=== PATIENT | male | born 1975 | race Caucasian/White ===

== ENCOUNTER 2018-02-07 22:15 | Emergency (ER) | payer OTHER ==
[~2018-02-07] VITALS: Ht 172.7 cm; Wt 82.6 kg
[2018-02-07] MEDS ORDERED: Morphine Sulfate 4mg/ml Inj IVP ONE (22:30)
[2018-02-07] MEDS ORDERED: Ketorolac 30mg Inj IV ONE (22:30)
--- NOTE | 2018-02-07 22:31 | Emergency Room Report ---
History of Present Illness General Chief Complaint: Abdominal Pain Source: Patient Present Illness HPI Is a 42-year-old male who has a history of kidney stone about 7 years ago. He was able to pass it on his own. He presents with chief complaint abdominal pain started about few hours ago. Now radiating down to the left flank area. Has nausea but no vomiting. Pain is 8 out of 10. His been drinking a lot of fluid. No fever chills. No hematuria. Nothing made it better. Nothing made it worse. Pain is sharp in nature. Allergies: Coded Allergies: No Known Allergies (Unverified , 02/07/18) Patient History Past Medical History: see triage record, old chart reviewed Past Surgical History: other Pertinent Family History: none Social History: Denies: smoking Immunizations: other Reviewed Nursing Documentation: PMH: Agreed; PSxH: Agreed Nursing Documentation-PMH Past Medical History: No Stated History Review of Systems Eye: Denies: eye pain, blurred vision ENT: Denies: ear pain, nose congestion, throat swelling Respiratory: Denies: cough, shortness of breath Cardiovascular: Denies: chest pain, palpitations Gastrointestinal: Reports: abdominal pain; Denies: diarrhea, nausea, vomiting Musculoskeletal: Denies: back pain, joint pain Skin: Denies: rash Neurological: Denies: headache, numbness Endocrine: Denies: increased thirst, increased urine Hematologic/Lymphatic: Denies: easy bruising All Other Systems: negative except mentioned in HPI Physical Exam Vital Signs Date Time Temp Pulse Resp B/P (MAP) Pulse Ox O2 Delivery O2 Flow Rate FiO2 02/07/18 22:19 98.2 53 18 142/80 97 Room Air 98.2 vitals normal Sp02 EP Interpretation: reviewed, normal General Appearance: well appearing, no apparent distress, alert Head: normocephalic, atraumatic Eyes: bilateral eye PERRL, bilateral eye EOMI ENT: hearing grossly normal, normal pharynx Neck: full range of motion, supple, no meningismus Respiratory: chest non-tender, lungs clear, normal breath sounds Cardiovascular #1: regular rate, rhythm, no murmur Gastrointestinal: normal bowel sounds, non tender, no mass, no organomegaly, no bruit, non-distended Musculoskeletal: back normal, gait/station normal, normal range of motion Psychiatric: mood/affect normal Skin: warm/dry Medical Decision Making Diagnostic Impression: Primary Impression: Ureteral calculus, left ER Course Patient presents with renal colic and has a ureteral stone. No evidence of infection or kidney injury. Pain is well-controlled. We'll discharge home. Lab Results Impression labs unremarkable CT/MRI/US Diagnostic Results CT/MRI/US Diagnostic Results : Imaging Test Ordered: cT abdomen and pelvis Impression Read by radiologist. Left UVJ stone with mild hydronephrosis Last Vital Signs Date Time Temp Pulse Resp B/P (MAP) Pulse Ox O2 Delivery O2 Flow Rate FiO2 02/07/18 22:19 98.2 53 18 142/80 97 Room Air 98.2 Status: improved Disposition: HOME, SELF-CARE Condition: Stable Scripts Tamsulosin Hcl (TAMSULOSIN HCL*) 0.4 Mg Cap.er.24h 0.4 MG ORAL BEDTIME, #30 CAP Prov: EWA FISHMAN M.D. 02/07/18 Ibuprofen* (MOTRIN*) 600 Mg Tablet 600 MG ORAL THREE TIMES A DAY, #30 TAB 0 Refills Prov: EWA FISHMAN M.D. 02/07/18 Hydrocodone/Acetaminophen 5-325* (HYDROCODONE/ACETAMINOPHEN 5-325*) 1 Each Tablet 1 TAB ORAL Q6H PRN for For Pain, #20 TAB 0 Refills Prov: EWA FISHMAN M.D. 02/07/18 Additional Instructions: Follow-up with your DrJamil in 2 to 3 days if not better. If you can't pass the kidney stone, you will need a referral to see a urologist. Return if symptom worsen. EWA FISHMAN M.D. February 07, 2018 22:31
[2018-02-07 22:40] VITALS: BP 130/90
[2018-02-07 22:58] LABS: ANION GAP 9 mmol/L (5-15); BASOPHILS % (AUTO) 1.6 % (0.0-2.0); BLOOD UREA NITROGEN 16 mg/dL (7-18); CALCIUM 8.8 MG/DL (8.5-10.1); CARBON DIOXIDE 25 MMOL/L (21-32); CHLORIDE 101 MMOL/L (98-107); CREATININE 1.2 MG/DL (0.55-1.30); HEMATOCRIT 41.6 % (42.0-52.0); HEMOGLOBIN 14.2 G/DL (14.2-18.0); LYMPHOCYTES % (AUTO) 31.6 % (20.0-45.0); MEAN CORPUSCULAR VOLUME 90 FL (80-99); MONOCYTES % (AUTO) 9.8 % (1.0-10.0); NEUTROPHILS % (AUTO) 55.1 % (45.0-75.0); PLATELET COUNT 206 K/UL (150-450); POTASSIUM 3.7 MMOL/L (3.5-5.1); RED BLOOD COUNT 4.62 M/UL (4.70-6.10); RED CELL DISTRIBUTION WIDTH 11.2 % (11.6-14.8); SODIUM 135 MMOL/L (136-145)
[2018-02-07 23:12] LABS: APPEARANCE,URINE SLIGHTLY CLOUDY; BILIRUBIN, URINE NEGATIVE (NEGATIVE); COLOR,URINE PALE YELLOW; GLUCOSE, URINE (UA) NEGATIVE (NEGATIVE); KETONES,URINE NEGATIVE (NEGATIVE); LEUKOCYTE ESTERASE ,URINE NEGATIVE (NEGATIVE); NITRITE,URINE NEGATIVE (NEGATIVE); PH,URINE 6.5 (4.5-8.0); PROTEIN,URINE NEGATIVE (NEGATIVE); UROBILINOGEN,URINE NORMAL MG/DL (0.0-1.0)
[2018-02-07] MEDS ORDERED: IBUPROFEN600 MG ORAL (23:26)
[2018-02-07] MEDS ORDERED: TAMSULOSIN HCL0.4 MG ORAL (23:26)
[2018-02-07] MEDS ORDERED: HYDROCODON-ACE1 EA15 ORAL (23:26)
[2018-02-07 23:30] VITALS: BP 128/82
--- NOTE | 2018-02-07 23:47 | Diagnostic Imaging Report ---
EXAM: CT Abdomen and Pelvis Without Intravenous Contrast CLINICAL HISTORY: ABD PAIN TECHNIQUE: Axial computed tomography images of the abdomen and pelvis without intravenous contrast. CTDI is 16 mGy and DLP is 914 mGy-cm. One or more of the following dose reduction techniques were used: automated exposure control, adjustment of the mA and/or kV according to patient size, use of iterative reconstruction technique. COMPARISON: No relevant prior studies available. FINDINGS: Lung bases: Unremarkable. No mass. No consolidation. ABDOMEN: Liver: Multiple low-density lesions in the liver measuring up to 10 cm. Gallbladder and bile ducts: Unremarkable. No calcified stones. No ductal dilation. Pancreas: Unremarkable. No ductal dilation. Spleen: Unremarkable. No splenomegaly. Adrenals: Unremarkable. No mass. Kidneys and ureters: Bilateral nonobstructing renal stones. 3 mm distal left ureteral stone with moderate proximal dilatation. Stomach and bowel: Unremarkable. No obstruction. No mucosal thickening. PELVIS: Appendix: No findings to suggest acute appendicitis. Bladder: Unremarkable. No stones. Reproductive: Unremarkable as visualized. ABDOMEN and PELVIS: Intraperitoneal space: Unremarkable. No free air. No significant fluid collection. Bones/joints: No acute fracture. No dislocation. Soft tissues: Unremarkable. Vasculature: Unremarkable. No abdominal aortic aneurysm. Lymph nodes: Unremarkable. No enlarged lymph nodes. IMPRESSION: 1. Multiple low-density lesions in the liver measuring up to 10 cm. These are indeterminate. Correlate with contrast enhanced imaging. 2. Bilateral nonobstructing renal stones. 3 mm distal left ureteral stone with moderate proximal dilatation. [employer] 02/07/18 23:53 Verify Receipt Verified receipt with Maurilio in ER for MD Winsome on 02/07 23:52 (-07:00)
[2018-02-08 00:20] VITALS: BP 128/82
[2018-02-08] MEDS ORDERED: HYDROCODON-ACE1 EA15 ORAL (11:00)
== END 2018-02-08 00:20 | disposition home or self-care (01) ==
LOC: EMR 23:24
DX: N20.1 Calculus of ureter (principal); Z87.442 Personal history of urinary calculi
CPT/HCPCS: 36415; 74176; 80048; 81003; 85025; 96360; 96374; 96375; 99284; J1885; J2270; J2405

== ENCOUNTER 2018-02-09 19:41 | Inpatient (IN) | payer OTHER ==
[~2018-02-09] VITALS: Ht 172.7 cm; Wt 82.6 kg
[~2018-02-09 19:41] MED LIST: HYDROCODON-ACE1 EA15 ORAL; IBUPROFEN600 MG ORAL; TAMSULOSIN HCL0.4 MG ORAL
[2018-02-09 20:10] VITALS: BP 147/90
[2018-02-09] MEDS ORDERED: Ketorolac 30mg Inj IV ONE (20:30)
[2018-02-09] MEDS ORDERED: Morphine Sulfate 4mg/ml Inj IVP ONE (20:30)
[2018-02-09] MEDS ORDERED: Lidocaine 2% 100mg/5ml Carp IV ONE (20:30)
[2018-02-09 20:51] LABS: ANION GAP 8 mmol/L (5-15); BLOOD UREA NITROGEN 12 mg/dL (7-18); CALCIUM 8.8 MG/DL (8.5-10.1); CARBON DIOXIDE 28 MMOL/L (21-32); CHLORIDE 100 MMOL/L (98-107); CREATININE 1.6 MG/DL (0.55-1.30); SODIUM 136 MMOL/L (136-145)
[2018-02-09 20:53] LABS: APPEARANCE,URINE CLEAR; BILIRUBIN, URINE NEGATIVE (NEGATIVE); COLOR,URINE PALE YELLOW; GLUCOSE, URINE (UA) NEGATIVE (NEGATIVE); HEMATOCRIT 41.3 % (42.0-52.0); HEMOGLOBIN 14.2 G/DL (14.2-18.0); KETONES,URINE 3+ (NEGATIVE); LEUKOCYTE ESTERASE ,URINE NEGATIVE (NEGATIVE); MEAN CORPUSCULAR VOLUME 89 FL (80-99); NITRITE,URINE NEGATIVE (NEGATIVE); PH,URINE 7 (4.5-8.0); PLATELET COUNT 179 K/UL (150-450); PROTEIN,URINE NEGATIVE (NEGATIVE); RED BLOOD COUNT 4.62 M/UL (4.70-6.10); RED CELL DISTRIBUTION WIDTH 10.7 % (11.6-14.8); UROBILINOGEN,URINE NORMAL MG/DL (0.0-1.0); WHITE BLOOD COUNT 13.3 K/UL (4.8-10.8)
[2018-02-09 21:01] LABS: ALANINE AMINOTRANSFERASE 37 U/L (12-78); ALBUMIN 3.9 G/DL (3.4-5.0); ALBUMIN/GLOBULIN RATIO 1.1 (1.0-2.7); ALKALINE PHOSPHATASE 61 U/L (46-116); ASPARTATE AMINO TRANSFERASE 24 U/L (15-37); BILIRUBIN,TOTAL 1.1 MG/DL (0.2-1.0)
[2018-02-09 21:03] LABS: BILIRUBIN,DIRECT 0.2 MG/DL (0.0-0.3)
[2018-02-09 21:30] VITALS: BP 126/73
--- NOTE | 2018-02-09 21:44 | Emergency Room Report ---
History of Present Illness General Chief Complaint: Lower Back Pain or Injury Source: Patient Present Illness HPI Patient is a 42-year-old male recently seen emergency department for the kidney stone a presented after increased left sided flank pain. Patient reportedly had been unable to keep down his medications the patient had recently been seen was noted to have a 3 mm left UVJ stone. The patient reports having increased left-sided flank pain as well as left-sided lower abdominal pain. He denies any hematuria. He denies any recent fever. The patient had emesis without any blood. The patient have reported having worsening pain since last visit 2 days ago.The pain was severe and sharp in nature. Allergies: Coded Allergies: No Known Allergies (Unverified , 02/07/18) Patient History Past Medical History: see triage record Reviewed Nursing Documentation: PMH: Agreed; PSxH: Agreed Review of Systems All Other Systems: negative except mentioned in HPI Physical Exam Vital Signs Date Time Temp Pulse Resp B/P (MAP) Pulse Ox O2 Delivery O2 Flow Rate FiO2 02/09/18 19:44 98.9 68 18 147/90 98 Room Air 99.0 Sp02 EP Interpretation: reviewed, normal General Appearance: normal inspection, well appearing, no apparent distress, alert, GCS 15 Head: atraumatic ENT: normal ENT inspection, hearing grossly normal, normal voice Neck: normal inspection, full range of motion, supple, no bony tend Respiratory: normal inspection, lungs clear, normal breath sounds, no respiratory distress, no retraction, no wheezing Cardiovascular #1: regular rate, rhythm, no edema Gastrointestinal: normal inspection, normal bowel sounds, non tender, soft, no guarding, no hernia Genitourinary: CVA tenderness (L) Musculoskeletal: normal inspection, back normal, normal range of motion Neurologic: normal inspection, alert, oriented x3, responsive, 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 Differential diagnosis included was not limited to pneumonia, renal stone, rib fracture, pulmonary embolism, ulcer, enteritis, pyelonephritis among others. Because of complexity of patient's case laboratory testing and imaging studies were ordered. The patient started on IV fluids. He was given IV lidocaine as well as IV Toradol. And morphine.The patient's previous CT was reviewed and was noted to have the left 3 mm ureteral stone. Urinalysis showed noted to infection. Patient was started on IV fluids. Dr. Konrad Francis. Dr. Jacinta Martini was contacted for Dr Coombs for inpatient management. Labs Test 02/09/18 20:30 White Blood Count 13.3 K/UL (4.8-10.8) Red Blood Count 4.62 M/UL (4.70-6.10) Hemoglobin 14.2 G/DL (14.2-18.0) Hematocrit 41.3 % (42.0-52.0) Mean Corpuscular Volume 89 FL (80-99) Mean Corpuscular Hemoglobin 30.9 PG (27.0-31.0) Mean Corpuscular Hemoglobin Concent 34.5 G/DL (32.0-36.0) Red Cell Distribution Width 10.7 % (11.6-14.8) Platelet Count 179 K/UL (150-450) Mean Platelet Volume 8.1 FL (6.5-10.1) Neutrophils (%) (Auto) % (45.0-75.0) Lymphocytes (%) (Auto) % (20.0-45.0) Monocytes (%) (Auto) % (1.0-10.0) Eosinophils (%) (Auto) % (0.0-3.0) Basophils (%) (Auto) % (0.0-2.0) Differential Total Cells Counted 100 Neutrophils % (Manual) 76 % (45-75) Lymphocytes % (Manual) 15 % (20-45) Monocytes % (Manual) 6 % (1-10) Eosinophils % (Manual) 0 % (0-3) Basophils % (Manual) 0 % (0-2) Band Neutrophils 3 % (0-8) Platelet Estimate Adequate Platelet Morphology Normal Red Blood Cell Morphology Normal Prothrombin Time 10.0 SEC (9.30-11.50) Prothromb Time International Ratio 1.0 (0.9-1.1) Activated Partial Thromboplast Time 28 SEC (23-33) Urine Color Pale yellow Urine Appearance Clear Urine pH 7 (4.5-8.0) Urine Specific [place] 1.005 (1.005-1.035) Urine Protein Negative (NEGATIVE) Urine Glucose (UA) Negative (NEGATIVE) Urine Ketones 3+ (NEGATIVE) Urine Occult Blood 5+ (NEGATIVE) Urine Nitrite Negative (NEGATIVE) Urine Bilirubin Negative (NEGATIVE) Urine Urobilinogen Normal MG/DL (0.0-1.0) Urine Leukocyte Esterase Negative (NEGATIVE) Urine RBC 5-10 /HPF (0 - 0) Urine WBC 0-2 /HPF (0 - 0) Urine Squamous Epithelial Cells None /LPF (NONE/OCC) Urine Bacteria Few /HPF (NONE) Sodium Level 136 MMOL/L (136-145) Potassium Level 4.0 MMOL/L (3.5-5.1) Chloride Level 100 MMOL/L (98-107) Carbon Dioxide Level 28 MMOL/L (21-32) Anion Gap 8 mmol/L (5-15) Blood Urea Nitrogen 12 mg/dL (7-18) Creatinine 1.6 MG/DL (0.55-1.30) Estimat Glomerular Filtration Rate 47.6 mL/min (>60) Glucose Level 114 MG/DL (74-106) Calcium Level 8.8 MG/DL (8.5-10.1) Total Bilirubin 1.1 MG/DL (0.2-1.0) Direct Bilirubin 0.2 MG/DL (0.0-0.3) Aspartate Amino Transf (AST/SGOT) 24 U/L (15-37) Alanine Aminotransferase (ALT/SGPT) 37 U/L (12-78) Alkaline Phosphatase 61 U/L (46-116) Total Protein 7.5 G/DL (6.4-8.2) Albumin 3.9 G/DL (3.4-5.0) Globulin 3.6 g/dL Albumin/Globulin Ratio 1.1 (1.0-2.7) Lipase 74 U/L (73-393) Last Vital Signs Date Time Temp Pulse Resp B/P (MAP) Pulse Ox O2 Delivery O2 Flow Rate FiO2 02/09/18 21:30 71 13 126/73 96 Room Air 02/09/18 20:54 98.9 Status: unchanged Disposition: ADMITTED INPATIENT Condition: Serious Referrals: NEEMA SIMMONS MD (PCP) Abdulaziz Navarro MD February 09, 2018 21:44
[2018-02-09] MEDS ORDERED: Solu-MEDROL 125mg Inj IVP ONE (22:00)
[2018-02-09] MEDS ORDERED: DiphenhydrAMINE 50mg/ml Inj IVP ONE (22:00)
[2018-02-09] MEDS ORDERED: Tamsulosin 0.4mg cap ORAL SCH (22:44)
[2018-02-09 23:00] VITALS: BP 135/91
[2018-02-09 23:17] VITALS: BP 130/80
[2018-02-10] VITALS: BP 107/73
[2018-02-10] MEDS: Sodium Chloride 500ML 550 ML IV SCH ×2 (00:13→03:50)
--- NOTE | 2018-02-10 01:00 | Consultation ---
DATE OF CONSULTATION: 02/09/2018 UROLOGY CONSULTATION CONSULTING PHYSICIAN: Konrad Francis M.D. ATTENDING/CONSULTING PHYSICIAN: Abdulaziz Navarro M.D. of the emergency department. CHIEF COMPLAINT AND HISTORY OF PRESENT ILLNESS: I was asked by Dr. Navarro to evaluate this very pleasant, 42-year-old gentleman regarding history of a 3 mm left UVJ stone with hydronephrosis and colic secondary to same. Briefly, the patient presented to the emergency room approximately 3 days ago with left-sided abdominal pain and nausea and vomiting. He has a history of previous kidney stones and has passed 1 stone 7 years ago. He has been well until this time. A CT scan revealed a 3 mm left UVJ stone with hydronephrosis as a source of the same. The patient was sent home with pain medication, but he returns to the hospital for ongoing discomfort. Given the same, I was asked to evaluate the patient. PAST MEDICAL HISTORY: 1. Nephrolithiasis. 2. Microhematuria. PAST SURGICAL HISTORY: Cystoscopy. MEDICATIONS: Generally none. Please see the chart for current medications and administration details. ALLERGIES: No known drug allergies. SOCIAL HISTORY: Unremarkable for tobacco, alcohol, or drug use. The patient drinks alcohol socially. FAMILY HISTORY: Noncontributory. REVIEW OF SYSTEMS: A 12-system review of systems was essentially unremarkable outside of what is described above. PHYSICAL EXAMINATION: GENERAL: The patient is a middle-aged gentleman, awake, alert, oriented x4. Very pleasant. No obvious distress. HEENT: NC/AT. EOMI. Oropharynx clear. NECK: Supple. Full range of motion. CHEST: Within normal limits. ABDOMEN: Soft, nontender, and nondistended. EXTREMITIES: Warm and well perfused. No cyanosis, clubbing, or edema. BACK: Left CVA tenderness to percussion. NEUROLOGIC: Grossly nonfocal. GENITOURINARY: Reveals normal male external genitalia. LABORATORY DATA: White blood cell count 13.3, hematocrit 41.3, platelets 179. Sodium 136, potassium 4.0 chloride 100, bicarbonate 28, BUN 12, creatinine 1.6, glucose 114, calcium 8.8. LFTs within normal limits. Lipase 74. Urinalysis, specific gravity 1.005, pH 7.0. Dip test notable for 3+ ketones, 5+ occult blood. Microanalysis with 5 to 10 red blood cells per high-power field, few bacteria seen. DIAGNOSTIC IMAGING: CT scan of the abdomen and pelvis done 02/07/2018 reveals a 3 mm stone in the distal left ureter with moderate proximal dilatation secondary to same. ASSESSMENT AND PLAN: In summary, the patient is a 42-year-old gentleman with a history of known nephrolithiasis, who presented to the hospital 3 days ago with left flank pain, nausea, and vomiting. Workup revealed a 3 mm left distal ureteral stone with hydronephrosis secondary to same. He was sent home, but now returns with ongoing pain. Physical exam reveals a left-sided CVA tenderness to percussion. Laboratory data is notable for a slightly elevated creatinine. Diagnostic imaging revealed a stone described above. I discussed these findings today with the patient and his at the bedside. We will admit him and place him on Toradol and fluids and Flomax. We will strain all his urine in attempt to allow him to pass the stone conservatively. If this patient fails to pass the stone in the next 24 hours or so, we will plan for operative intervention with ureteroscopy, laser lithotripsy, and double-J stent placement. The plan was discussed with patient who agrees and consents to the same. Thank you for allowing me to participate in the care of this nice gentleman. Please do not hesitate to contact me for any questions that you may further have regarding his care. I will be happy to see him with you as needed. Konrad Francis M.D. DR: Fernando JOB#: [id number] CC:
[2018-02-10] MEDS: Ketorolac 30mg Inj IV SCH ×3 (02:28→14:30)
[2018-02-10 05:49] VITALS: BP 116/71
[2018-02-10 07:46] VITALS: BP 129/73
[2018-02-10 08:07] LABS: HEMATOCRIT 39.6 % (42.0-52.0); HEMOGLOBIN 13.5 G/DL (14.2-18.0); MEAN CORPUSCULAR VOLUME 90 FL (80-99); PLATELET COUNT 177 K/UL (150-450); RED BLOOD COUNT 4.37 M/UL (4.70-6.10); RED CELL DISTRIBUTION WIDTH 10.9 % (11.6-14.8); WHITE BLOOD COUNT 9.8 K/UL (4.8-10.8)
[2018-02-10 08:30] LABS: ANION GAP 10 mmol/L (5-15); BLOOD UREA NITROGEN 16 mg/dL (7-18); CALCIUM 8.5 MG/DL (8.5-10.1); CARBON DIOXIDE 26 MMOL/L (21-32); CHLORIDE 104 MMOL/L (98-107); CREATININE 1.7 MG/DL (0.55-1.30); POTASSIUM 3.9 MMOL/L (3.5-5.1); SODIUM 140 MMOL/L (136-145)
[2018-02-10 11:45] VITALS: BP 128/79
[2018-02-10] MEDS ORDERED: NS 500ML ONE (14:44)
--- NOTE | 2018-02-10 22:02 | History and Physical ---
History of Present Illness General Date patient seen: February 10, 2018 Time patient seen: 12:00 Reason for Hospitalization: Lower Back Pain or Injury Present Illness HPI 42-year-old gentleman regarding history of a 3 mm left UVJ stone with hydronephrosis and colic secondary to same. Briefly, the patient presented to the emergency room approximately 3 days ago with left-sided abdominal pain and nausea and vomiting. He has a history of previous kidney stones and has passed 1 stone 7 years ago. He has been well until this time. A CT scan revealed a 3 mm left UVJ stone with hydronephrosis as a source of the same. The patient was sent home with pain medication, but he returns to the hospital for ongoing discomfort. Patient was given IVF, toradol, and flomax. Currently, patient states that he was able to pass a small stones. Denies any flank pain anymore. Denies n/v, f/c, cp, sob. Allergies: Coded Allergies: No Known Allergies (Unverified , 02/07/18) Medication History Scheduled Ibuprofen* (Motrin*), 600 MG ORAL THREE TIMES A DAY Tamsulosin Hcl (Tamsulosin Hcl*), 0.4 MG ORAL BEDTIME Scheduled PRN Hydrocodone/Acetaminophen 5-325* (Hydrocodone/Acetaminophen 5-325*), 1 TAB ORAL Q6H PRN for For Pain Patient History Healthcare decision maker Resuscitation status Full Code Advanced Directive on File No Review of Systems All Other Systems: negative except mentioned in HPI Physical Exam General Appearance: no apparent distress, alert HEENT: normocephalic, atraumatic Neck: non-tender, normal alignment, supple Respiratory/Chest: chest wall non-tender, lungs clear, normal breath sounds Cardiovascular/Chest: normal peripheral pulses, normal rate Genitourinary/Rectal: other - no flank pain Extremities: normal range of motion, non-tender Skin Exam: normal pigmentation, warm/dry Neurologic: 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 II-XII grossly normal, no motor/sensory deficits, alert, oriented x 3 Last 24 Hour Vital Signs Date Time Temp Pulse Resp B/P (MAP) Pulse Ox O2 Delivery O2 Flow Rate FiO2 02/10/18 14:30 98.0 02/10/18 11:45 98.0 89 20 128/79 95 98.0 02/10/18 08:30 98.5 02/10/18 08:00 98.5 02/10/18 07:46 98.5 63 16 129/73 98 Room Air 98.5 02/10/18 05:49 98.5 68 16 116/71 98 Room Air 98.5 02/10/18 00:00 98.4 65 16 107/73 94 98.4 02/09/18 23:17 98.6 64 18 130/80 96 98.6 02/09/18 23:05 98.9 78 23 135/91 100 Room Air 98.9 02/09/18 23:00 78 23 135/91 100 Room Air Intake and Output 02/09/18 02/10/18 19:00 07:00 Intake Total 1303 ml Output Total 1350 ml Balance -47 ml Intake Oral 300 ml IV Total 1003 ml Output Urine Total 1350 ml Laboratory Tests Test 02/10/18 06:05 02/10/18 14:25 White Blood Count 9.8 K/UL (4.8-10.8) Red Blood Count 4.37 M/UL (4.70-6.10) L Hemoglobin 13.5 G/DL (14.2-18.0) L Hematocrit 39.6 % (42.0-52.0) L Mean Corpuscular Volume 90 FL (80-99) Mean Corpuscular Hemoglobin 30.8 PG (27.0-31.0) Mean Corpuscular Hemoglobin Concent 34.1 G/DL (32.0-36.0) Red Cell Distribution Width 10.9 % (11.6-14.8) L Platelet Count 177 K/UL (150-450) Mean Platelet Volume 8.0 FL (6.5-10.1) Neutrophils (%) (Auto) % (45.0-75.0) Lymphocytes (%) (Auto) % (20.0-45.0) Monocytes (%) (Auto) % (1.0-10.0) Eosinophils (%) (Auto) % (0.0-3.0) Basophils (%) (Auto) % (0.0-2.0) Differential Total Cells Counted 100 Neutrophils % (Manual) 93 % (45-75) H Lymphocytes % (Manual) 6 % (20-45) L Monocytes % (Manual) 1 % (1-10) Eosinophils % (Manual) 0 % (0-3) Basophils % (Manual) 0 % (0-2) Band Neutrophils 0 % (0-8) Platelet Estimate Adequate Platelet Morphology Normal Red Blood Cell Morphology Normal Sodium Level 140 MMOL/L (136-145) Potassium Level 3.9 MMOL/L (3.5-5.1) Chloride Level 104 MMOL/L (98-107) Carbon Dioxide Level 26 MMOL/L (21-32) Anion Gap 10 mmol/L (5-15) Blood Urea Nitrogen 16 mg/dL (7-18) Creatinine 1.7 MG/DL (0.55-1.30) H Estimat Glomerular Filtration Rate 44.4 mL/min (>60) Glucose Level 173 MG/DL (74-106) H Calcium Level 8.5 MG/DL (8.5-10.1) Stone Source Pending Stone Size Pending Stone Weight Pending Stone Color Pending Stone Composition Pending Stone Nidus Pending Height (Feet): 5 Height (Inches): 8.00 Weight (Pounds): 182 Assessment/Plan Problem List: (1) Nephrolithiasis ICD Codes: N20.0 - Calculus of kidney SNOMED: 39637342 (2) Microhematuria ICD Codes: R31.29 - Other microscopic hematuria SNOMED: 296804853 Status: stable, progressing Assessment/Plan - Admit to inpatient - urology consulted, appreciate rec's - IVF - toradol - flomax - pain control and supportive care Since patient was able to pass the stone on his own, no surgical interventions are needed per urology and patient is stable to be discharged home. Education was given to keep himself hydrated to prevent recurrent nephrolithiasis. Patient agreed and understood plan of care. I spent 72 minutes on this patient's case with greater than 50% spent on care and coordination of this patient. Case was d/w nursing staff, patient, CM, and urologist. Brit Parkinson NP February 10, 2018 22:02
--- NOTE | 2018-02-11 13:44 | Discharge Summary ---
Discharge Summary Discharge Summary _ DATE OF ADMISSION: 02/09/2018 DATE OF DISCHARGE: 02/10/2018 REASON FOR ADMISSION: 42 years old male with history of known nephrolithiasis, presented to the hospital 3 days ago with left flank pain, nausea and vomiting. CT abdomen and pelvis was done at that time and revealed bilateral nonobstructing renal stones, 3 mm distal left ureteral stone with moderate proximal dilatation. Patient was sent home but returned with ongoing pain. Physical examination revealed left-sided costovertebral angle tenderness to percussion. Laboratory workup was notable for slightly elevated creatinine 1.6. WBC 13.3 , stable hemoglobin and hematocrit. Urinalysis with microhematuria. Patient admitted with diagnosis of nephrolithiasis, hydronephrosis, microhematuria, renal colic. CONSULTANTS: Urologist Dr. Francis HOSPITAL COURSE: Patient admitted to medical surgical floor. Patient started on aggressive IV hydration. Pain management was provided with Toradol. Urology consultation was requested .Urologist seen and evaluated patient. Patient was started on Flomax.All urine was strained. Supportive care provided. p Per urologist, initial plan was to strain all urine in an attempt to allow patient to pass the stone conservatively. Per urologist, surgical treatment with ureteroscopy laser lithotripsy and double J stent placement would be considered, if patient won' t pass stone in the next 24 hours or so. Urologist had extensive discussion with patient and his . Patient was able to pass the stone at this time.. No surgical interventions were needed as per urology. Patient was stable for discharge home. Education provided regarding importance of being adequately hydrated to prevent recurrent nephrolithiasis. Patient was stable for discharge. FINAL DIAGNOSES: Nephrolithiasis Hydronephrosis secondary to nephrolithiasis Renal colic Microhematuria Elevated creatinine ( likely due to hydro) DISCHARGE MEDICATIONS: See Medication Reconciliation list. DISCHARGE INSTRUCTIONS: Patient was discharged home. Patient was educated on importance of maintaining adequate hydration in order to prevent recurrent nephrolithiasis. Patient to follow-up with a primary care provider next week to check creatinine level. Patietn was educated on ED precautions: return or worsening pain, difficulties with urination, blood in urine. I have been assigned to dictate discharge summary for this account. I was not involved in the patient's management. Blaire Ko NP February 11, 2018 13:44
== END 2018-02-10 14:45 | disposition home or self-care (01) | DRG 694 ==
LOC: EMR 20:20 → 4W 21:17 → EDBEDREQ 21:54
DX: N13.2 Hydronephrosis with renal and ureteral calculous obstruction (principal); R31.29 Other microscopic hematuria
CPT/HCPCS: 36415; 80048; 80053; 81003; 82248; 82360; 83690; 85007; 85025; 85610; 85730; 86850; 86900; 86901; 99285; J2405